=== PATIENT | male | born 1935 | race Caucasian/White ===

== ENCOUNTER → 2017-08-27 14:18 | Outpatient (CLI) | payer MEDICARE ==
[2017-08-27 16:14] LABS: APPEARANCE HAZY (CLEAR); COLOR YELLOW (YELLOW)
[2017-08-27 16:15] LABS: SPECIFIC GRAVITY 1.015 (1.005-1.020)
[2017-08-27 16:18] LABS: BILIRUBIN NEGATIVE (NEGATIVE); GLUCOSE NEGATIVE (NEGATIVE); KETONE NEGATIVE (NEGATIVE); NITRITE NEGATIVE (NEGATIVE); PROTEIN TRACE mg/dL (NEGATIVE); UROBILINOGEN NORMAL (NORMAL)
[2017-08-27 16:19] LABS: BACTERIA FEW /hpf (NONE SEEN); RED CELLS - URINE 25-50 /hpf (0-5); WHITE CELLS - URINE >50 /hpf (0-5)
== END | disposition home or self-care (01) ==
LOC: D.LABREF 14:18
PROVIDERS: Family Medicine
DX: N10 Acute pyelonephritis (principal); E11.9 Type 2 diabetes mellitus without complications